=== PATIENT | female | born 1960 | race Caucasian/White ===

== ENCOUNTER 2024-08-10 11:44 | Day surgery (SDC) | payer OTHER ==
[2024-08-10] MEDS ORDERED: Xylocaine-Mpf 2% 5 Ml Vial IJ ONE (11:45)
[2024-08-10] MEDS ORDERED: DIPRIVAN 200 MG/20 ML IV ONE (14:04)
--- NOTE | 2024-08-10 16:35 | XRAY ---
Indication: Bilateral L4-S1 MBB. Intraoperative fluoroscopy provided for 13 seconds. Single digital spot image submitted for interpretation demonstrates posterior needle tips projecting over the expected left and right L4-S1 nerve roots. Correlate with intraoperative findings/report.
--- NOTE | 2024-08-10 16:43 | XRAY ---
13 seconds of fluoroscopy was used in surgery for a bilateral L4-S1 MBB.
== END 2024-08-10 14:35 | disposition home or self-care (01) ==
LOC: SDC-PAIN 11:44
PROVIDERS: ATTEND Psychiatry & Neurology Pain Medicine
DX: M47.816 Spondylosis without myelopathy or radiculopathy, lumbar region (principal)
CPT/HCPCS: 64493; 64494; 72020; 77002; J2704

== ENCOUNTER 2025-08-30 12:11 | Day surgery (SDC) | payer OTHER ==
[2025-08-30] MEDS ORDERED: methylPREDNISolone acetate IM ONE (12:12)
[2025-08-30] MEDS ORDERED: LIDOCAINE HCL 2% 100 MG/5 ML IJ ONE (12:12)
[2025-08-30] MEDS ORDERED: propofoL IV ONE (13:35)
[2025-08-30] MEDS ORDERED: Lactated Ringers 1,000 ML IV ONE (13:57)
--- NOTE | 2025-08-30 16:35 | XRAY ---
Indication: Bilateral L2-L4 MBB. Intraoperative fluoroscopy provided for 17 seconds. Single digital spot image submitted for interpretation demonstrates posterior needle tips projecting over expected left and right L2-L4 nerve roots. Correlate with intraoperative findings/report.
--- NOTE | 2025-08-30 16:43 | XRAY ---
17 seconds of fluoroscopy was used in surgery for a bilateral L4-S1 MBB.
== END 2025-08-30 14:15 | disposition home or self-care (01) ==
LOC: SDC-PAIN 12:11
PROVIDERS: ATTEND Psychiatry & Neurology Pain Medicine
DX: M47.817 Spondylosis without myelopathy or radiculopathy, lumbosacral region (principal)